=== PATIENT | female | born 1955 | race Caucasian/White ===

== ENCOUNTER → 2018-07-11 06:37 | Outpatient (CLI) | payer OTHER, SELFPAY ==
--- NOTE | 2018-07-11 16:15 | EMB_PTH ---
PATIENT: SUZAN ONOFRE LOC: [facility] #:[id number] AGE/SX: 69/F ROOM: RE07/11/[address]: Dr. Hank Proctor MD : [id number] BED: DIS: SPEC #: [id number] RECD: 07/11/18 16:54 STATUS: BRYSON AVTAR #: [id number] ABBY: 07/11/18 16:[address]: Hank Proctor DEPT: SURGICAL PATHOLOGY RECD BY: Trenton Hall Tissues: A - Endometrium, NOS B - Uterine cervix, NOS Procedures: Surgery Specimen Level IV HEADER OPERATION: Endometrial biopsy and polyp removal PRE-OP DIAGNOSIS: R93.8 / N84.1 TISSUE SUBMITTED: A ? Endometrial biopsy, B ? Cervical polyp MICROSCOPIC DIAGNOSIS A. Endometrial biopsy: Scant fragments of benign endometrial epithelium consistent with atrophied endometrium. Scant fragments of benign ecto- and endocervical epithelium. B. Cervical polyp: Benign endocervical polyp. Superficial fragments of benign endometrial tissue. JENNY:romain 07/15/18 COMMENT Clinical correlation and appropriate follow up are necessary. MICROSCOPIC DESCRIPTION Slides are reviewed. GROSS DESCRIPTION A - Received in fixative is one container labeled with the patient's name and designated EM biopsy. The specimen consists of multiple irregular fragments of hussein mucoid tissue that in aggregate measure 1 x 0.2 x <0.1 cm. The specimen is totally submitted in one cassette. B - Received in fixative is one container labeled with the patient's name and designated cervical polyp. The specimen consists of a pink, congested polyp measuring 0.5 x 0.5 x 0.3 cm. The entire specimen is submitted in one cassette. / JENNY:romain 07/12/18 TC:4 CPT: 66577 x2
== END ==
PROVIDERS: Visit Provider Obstetrics & Gynecology
DX: N84.1 Polyp of cervix uteri (principal); R93.8 Abnormal findings on diagnostic imaging of other specified body structures
CPT/HCPCS: 88305